=== PATIENT | male | born 1945 | race Caucasian/White ===

== ENCOUNTER 2019-03-25 06:09 | Inpatient (IN) | payer OTHER ==
[2019-03-21 17:11] VITALS: BMI 24.8
[2019-03-25] MEDS ORDERED: HEPARIN NA (PORCINE) 5,000 UNITS/ML 1ML VIAL SQ ONE (07:12)
[2019-03-25] MEDS ORDERED: BUPIVACAINE HCL/PF 0.5% (5MG/ML) 10 ML VIAL ONE (07:25)
[2019-03-25] MEDS ORDERED: fentaNYL CITRATE 250 MCG/5 ML VIAL ONE ×2 (07:52→10:58)
[2019-03-25] MEDS ORDERED: ROCURONIUM BROMIDE 50 MG/5 ML SYRINGE ONE ×2 (07:52→10:12)
[2019-03-25] MEDS ORDERED: MIDAZOLAM HCL 2 MG/2 ML SINGLE DOSE VIAL ONE (07:52)
[2019-03-25] MEDS ORDERED: SUCCINYLCHOLINE CHLORIDE 200 MG/10 ML SYRINGE ONE (07:52)
[2019-03-25] MEDS ORDERED: PROPOFOL 20 ML ONE ×2 (07:52)
[2019-03-25] MEDS ORDERED: DEXAMETHASONE SOD PHOSPHATE 4 MG/1 ML VIAL ONE (07:52)
--- NOTE | 2019-03-25 07:52 | HP ---
History & Physical Update - History History: No Change - Physical Physical: No Change - Assessment Assessment: No Change - Plan Plan: No Change (Full H&P in chart from 03/20/19 by Sveta Min MD)
[2019-03-25] MEDS ORDERED: ceFAZolin SODIUM 1 GM VIAL IVPB ONE (08:15)
[2019-03-25] MEDS ORDERED: BUPIVACAINE HCL/PF 0.5% (5 MG/ML) 30 ML VIAL IJ ONE ×2 (08:58→12:05)
[2019-03-25] MEDS ORDERED: NEOSTIGMINE METHYLSULFATE 0.5 MG/ML - 10 ML MDV ONE (12:13)
[2019-03-25] MEDS ORDERED: ONDANSETRON 4 MG/2 ML VIAL IVPUSH PRN (12:28)
[2019-03-25] MEDS ORDERED: OXYBUTYNIN CHLORIDE 5 MG TABLET PO PRN (12:38)
[2019-03-25] MEDS ORDERED: ACETAMINOPHEN 1000 MG/100 ML VIAL (NON FORMULARY) IVPB PRN (12:38)
[2019-03-25] MEDS ORDERED: ONDANSETRON 4 MG/2 ML VIAL IVPB PRN (12:38)
[2019-03-25] MEDS ORDERED: ACETAMINOPHEN 500 MG TABLET (FP) PO PRN (12:38)
[2019-03-25] MEDS ORDERED: oxyCODONE HCL 5 MG TABLET PO PRN (12:38)
[2019-03-25] MEDS ORDERED: diphenhydrAMINE HCL 50 MG CAPSULE PO PRN (12:38)
[2019-03-25] MEDS ORDERED: KETOROLAC TROMETHAMINE 15 MG/ML VIAL IVPB ONE (12:45)
[2019-03-25] MEDS ORDERED: KETOROLAC TROMETHAMINE 15 MG/ML VIAL ONE (12:47)
--- NOTE | 2019-03-25 13:01 | OP ---
Operative Note - Note: Operative Date: 03/25/19 Pre-Operative Diagnosis: Prostate cancer Operation: Robotic assisted prostectomy and pelvic lymph node Post-Operative Diagnosis: Same as Pre-op Surgeon: Jeferson Barbosa Break Out Worker: Benigno Cole Anesthesiologist/PASTE WORKER: Eufemia Sanchez Anesthesia: General Estimated Blood Loss (mls): 100 Operative Report Dictated: Yes
--- NOTE | 2019-03-25 13:05 | SURG ---
Surgery Plumber Helper Note Plumber Helper: Benigno Cole PA-C Date of Service: 03/25/19 Diagnosis: Prostate cancer Procedure: Robotic assisted prostatectomy and pelvic lymph node biopsy I was present for the entirety of the operative procedure. For further detail, please refer to operative report. Visit type - Case Type Case Type: Scheduled - Emergency Emergency Visit: No - New patient This patient is new to me today: Yes Date on this admission: 03/25/19 - Critical Care Critical Care patient: No
[2019-03-25] MEDS: SODIUM CHLORIDE 1,000 ML IV SCH (14:30)
[2019-03-25] MEDS: LACTATED RINGERS SOLUTION 1,000 ML IV SCH (15:21)
[2019-03-25] MEDS: KETOROLAC TROMETHAMINE 10 MG TABLET PO SCH ×2 (17:33→23:01)
[2019-03-25] MEDS: DOCUSATE SODIUM 100 MG CAPSULE (FP) PO SCH (21:35)
--- NOTE | 2019-03-25 21:43 | OPR ---
Date of Surgery: 03/25/19 Pre-Procedure Information Pre-op Diagnosis:Prostate cancer [C61] Procedure Information Procedure(s): PROSTATECTOMY LAPAROSCOPIC RADICAL ROBOTIC SI Bilateral pelvic lymph node dissection Anesthesia:General Surgeon(s) and Role: * Jeferson Barbosa MD - Primary Flue Blower: Benigno Procedure Description Indications:Intermediate risk prostate cancer. Findings:bilateral partial nerve sparing. Vesicourethral anastamosis with 3-0 Vloc. Procedure Details: The patient was prepped and draped in the usual fashion and placed in modified lithotomy position. All pressure points were padded and the patient was secured to the table. 16Fr cid catheter was inserted. A supraumbilical incision was made. Veress needle was introduced. The abdomen was insufflated to 15 mmHg. A 12 mm non-bladed trocar was introduced. The abdomen was inspected. There was no evidence of injury on entry. Two robotic trocars were placed in the right lower quadrant, one in the left lower quadrant, and an child care assistant 12 mm nonbladed AirSeal trocar was introduced two fingerbreadths above the anterior superior iliac spine on the left. The patient was placed in steep Trendelenburg. The AirSeal system was initiated and maintained at 13 mmHg, and the robot was brought in and docked into place.The medial umbilical ligaments were divided. The space of Retzius was developed. Superficial dorsal vein was divided with electrocatuery. Puboprostatic ligaments were divided. Endopelvic fascia was incised. The dorsal vein complex was controlled using 0 Vicryl figure-of-8 suture. The prostatovesical junction was divided using electrocautery. Vas deferens were identified, fulgurated, and divided. Seminal vesicles were dissected free of attachments. The posterior Denonvilliers fascia was divided. The rectum was peeled off the posterior aspect of the prostate as far down as possible. Bilateral prostatic pedicles were taken using Hem-o-lock clips and divided. Neurovascular bundleswere partially spared.The apex was dissected under direct vision. The anterior and posterior urethra were then divided. Finally, fibers of the posterior fibrous raphe were divided and the prostate was detached.Bilateral pelvic lymph node dissections were carried out removing the obturator and external iliac lymph node packet. At the end of the dissection, the external iliac vessels and the obturator nerve were intact with no evidence of injury. Left side was sent separately in endocatch bag. A 3-0 V-loc suture was used in the vesicourethral anastomosis from 6 o'clock to 12 o'clock clockwise and counterclockwise and tied in the middle. Irrigation with a new 18Fr foleyrevealedno leak. Balloon was inflated with 10cc.A MARGARET drain was placed and brought out the most lateral right-sided trocar incision and tied to the skin using 3-0 Nylon. The robot was undocked and removed. The patient was taken out of Trendelenburg. The prostate was then removed from an extension of the umbilical trocar. Fascia was closed using figure of 8 0-vicryl suture. The skin was closed using 4-[address] Barbosa was present and scrubbed for duration of case. Estimated Blood Loss: 100 ml
[2019-03-25] MEDS ORDERED: diphenhydrAMINE HCL 25 MG CAPSULE (FP) PO PRN (22:58)
[2019-03-26] MEDS: KETOROLAC TROMETHAMINE 10 MG TABLET PO SCH ×2 (06:20→12:48)
[2019-03-26 08:10] LABS: HEMATOCRIT 33.2 % (35.4-49); HEMOGLOBIN 11.2 GM/dL (11.7-16.9); MCH 29.5 pg (25.7-33.7); MCHC 33.8 g/dl (32.0-35.9); MEAN CELL VOLUME 87.3 fl (80-96); MEAN PLT VOLUME 8.8 fl (7.5-11.1); PLATELET COUNT 222 K/MM3 (134-434); RBC 3.81 M/mm3 (4.00-5.60)
[2019-03-26 08:41] LABS: BLOOD UREA NITROGEN 24.1 mg/dL (7-18); CREATININE 0.9 mg/dL (0.55-1.3); POTASSIUM 4.4 mmol/L (3.5-5.1)
[2019-03-26] MEDS: DOCUSATE SODIUM 100 MG CAPSULE (FP) PO SCH (10:57)
[2019-03-26 11:40] VITALS: BP 116/73; PULSE 89; TEMP 98.8
--- NOTE | 2019-03-26 12:21 | DS ---
Physical Exam: SUBJECTIVE: Patient seen and examined OBJECTIVE: Vital Signs Temperature 98.8 F 03/26/19 11:00 Pulse Rate 89 03/26/19 11:00 Respiratory Rate 18 03/26/19 11:00 Blood Pressure 116/73 03/26/19 11:00 O2 Sat by Pulse Oximetry (%) 96 03/25/19 21:00 PHYSICAL EXAM GENERAL: The patient is awake, alert, and fully oriented, in no acute distress. HEAD: Normal with no signs of trauma. EYES: PERRL, extraocular movements intact, sclera anicteric, conjunctiva clear. LUNGS: breathing comfortably, no accessory muscle use. HEART: Regular rate and rhythm ABDOMEN: Soft, mild lower abd tenderness, nondistended, no guarding, no rebound , no hepatosplenomegaly, no masses. Drain in place with serosanguinous drainage removed at bedside. EXTREMITIES: warm, well-perfused, no edema. NEUROLOGICAL: Cranial nerves II through XII grossly intact. Normal speech, gait not observed. PSYCH: Normal mood, normal affect. SKIN: Warm, dry, normal turgor, no rashes or lesions noted. LABS CBC,CMP WBC 7.0 K/mm3 (4.0-10.0) 03/26/19 06:50 RBC 3.81 M/mm3 (4.00-5.60) L 03/26/19 06:50 Hgb 11.2 GM/dL (11.7-16.9) L 03/26/19 06:50 Hct 33.2 % (35.4-49) L 03/26/19 06:50 MCV 87.3 fl (80-96) 03/26/19 06:50 MCH 29.5 pg (25.7-33.7) 03/26/19 06:50 MCHC 33.8 g/dl (32.0-35.9) 03/26/19 06:50 RDW 14.0 % (11.9-15.9) 03/26/19 06:50 Plt Count 222 K/MM3 (134-434) 03/26/19 06:50 MPV 8.8 fl (7.5-11.1) 03/26/19 06:50 Sodium 139 mmol/L (136-145) 03/26/19 06:50 Potassium 4.4 mmol/L (3.5-5.1) 03/26/19 06:50 Chloride 103 mmol/L (98-107) 03/26/19 06:50 Carbon Dioxide 29 mmol/L (21-32) 03/26/19 06:50 Anion Gap 7 MMOL/L (8-16) L 03/26/19 06:50 BUN 24.1 mg/dL (7-18) H 03/26/19 06:50 Creatinine 0.9 mg/dL (0.55-1.3) 03/26/19 06:50 Est GFR (CKD-EPI)AfAm 97.17 03/26/19 06:50 Est GFR (CKD-EPI)NonAf 83.84 03/26/19 06:50 Random Glucose 107 mg/dL (74-106) H 03/26/19 06:50 Calcium 8.0 mg/dL (8.5-10.1) L 03/26/19 06:50 HOSPITAL COURSE: 73yo M presented to the hospital for scheduled robotic assisted prostatectomy and pelvic lymph node biopsy for history of prostate cancer. Pt procedure went well with no intraoperative complications noted. Pt was recovered in the PACU and transferred to the floor. While in the hospital pt was doing well. Pt tolerating PO, ambulating, with pain well controlled. Pt has good urine output from his cid catheter and abdominal drain was removed at the bedside. Pt will be discharged home with cid in place to leg bag to stay in place until follow up with Dr. Holley in the office. Date of Admission:03/25/19 Date of Discharge: 03/26/19 Minutes to complete discharge: 25 Visit type - Case Type Case Type: Scheduled - Emergency Emergency Visit: No - New patient This patient is new to me today: Yes Date on this admission: 03/26/19 - Critical Care Critical Care patient: No
[2019-03-26] MEDS: LACTATED RINGERS SOLUTION 1,000 ML IV SCH (13:01)
[2019-03-26] MEDS: SODIUM CHLORIDE 1,000 ML IV SCH (13:01)
--- NOTE | 2019-03-31 12:58 | PATH ---
Surgical Pathology Report Patient Name: DAISHA WALKER [facility] Rec. #: [id number] /Age/Gender: 1945 (Age: 73) / F Account: [id number] Location: [facility] Taken: 03/25/2019 Received: 03/26/2019 Reported: 03/31/2019 Physicians: Jeferson Barbosa M.D. Specimen(s) Received A: PRE-PROSTATIC FAT B: RIGHT PELVIC LYMPH NODE C: LEFT PELVIC LYMPH NODE D: PROSTATE Clinical History Prostate carcinoma Final Diagnosis A. PRE-PROSTATIC FAT, EXCISION: BENIGN FIBROADIPOSE TISSUE. NEGATIVE FOR CARCINOMA. B. PELVIC LYMPH NODE, RIGHT, EXCISION: ONE LYMPH NODE NEGATIVE FOR CARCINOMA (0/1). C. PELVIC LYMPH NODE, LEFT, EXCISION: TWO LYMPH NODES NEGATIVE FOR CARCINOMA (0/2). D. PROSTATE, ROBOTIC ASSISTED LAPARASCOPIC RADICAL PROSTATECTOMY: PROSTATE ACINAR ADENOCARCINOMA, CASANDRA SCORE (3+4 = 7), GRADE 2. TUMOR VOLUME: APPROXIMATELY ~20% OF GLAND VOLUME. TUMOR FOCALITY: MULTIFOCAL, PRESENT BILATERALLY. HIGH GRADE PROSTATIC INTRAEPITHELIAL NEOPLASIA (HGPIN) PRESENT. NO INTRADUCTAL CARCINOMA PRESENT. RIGHT AND LEFT SEMINAL VESICLES ARE UNINVOLVED. NO LYMPHOVASCULAR INVASION IDENTIFIED. PERINEURAL INVASION IDENTIFIED. NO EXTRAPROSTATIC EXTENSION IDENTIFIED. SURGICAL MARGIN IS POSITIVE, NON-LIMITED, MEASURES 4 MM, AT RIGHT APEX; REMAINDER OF MARGINS ARE NEGATIVE. REMAINDER OF PROSTATIC PARENCHYMA SHOWS GLANDULAR AND STROMAL HYPERPLASIA, FOCAL ACUTE AND CHRONIC INFLAMMATION. AJCC PATHOLOGIC STAGE STAGE (pTNM, 8th Edition): pT2 pN0. SEE SUMMARY BELOW. Comments Prostate Carcinoma: Surgical Pathology Cancer Case Summary (Based on AJCC (TNM) 8th Edition) PROSTATE GLAND: Radical Prostatectomy Procedure _X_ Radical prostatectomy Prostate Size Weight: (grams): 53 g Size (centimeters): 5.4 x 4 x 3.6 cm Histologic Type _X_ Acinar adenocarcinoma Histologic Grade Grade Group and Parkville Score _X_ Grade group 2 ([place] Score 3+4=7) Percentage of Pattern 4 in Park[place] Score 7 (3+4, 4+3) Cancer (report if applicable): ~30 % Intraductal Carcinoma (IDC) _X_ Not identified Tumor Quantitation Estimated percentage of prostate involved by tumor: ~20 % Tumor size (dominant nodule, if present): n/a Extraprostatic Extension _X_ Not identified Urinary Bladder Neck Invasion _X_ Not identified Seminal Vesicle Invasion _X_ Not identified Lymphovascular Invasion _X_ Not identified Perineural Invasion _X_ Present Margins _X_ Involved by invasive carcinoma _X_ Non-limited (greater than or equal to 3 mm) Linear length of positive margin(s) (millimeters): 4 mm Focality _X_ Multifocal Location of Positive Margin(s) _X_ Right apical Casandra Pattern at Positive Margin(s) _X_ Pattern 3 Treatment Effect _X_ No known presurgical therapy Regional Lymph Nodes Lymph Node Examination Number of Lymph Nodes Involved: 0 Number of Lymph Nodes Examined: 3 Specify Site(s): Right and Left pelvic lymph nodes Pathologic Stage Classification (pTNM, AJCC 8th Edition) TNM Descriptors Primary Tumor (pT) _X_ pT2: Organ confined Regional Lymph Nodes Category (pN) _X_ pN0: No positive regional nodes Additional Pathologic Findings _X_ High-grade prostatic intraepithelial neoplasia (PIN) _X_ Inflammation (specify type): Acute and Chronic _X_ Nodular prostatic hyperplasia Electronically Signed Marylou Rivera M.D. Gross Description A. Received in formalin labeled "pre-prostatic fat," is a 5.6 x 4.0 x 0.3 cm aggregate of yellow, lobulated adipose tissue. No lesions or lymph nodes are identified. The specimen is entirely submitted in 4 cassettes. B. Received in formalin labeled "right pelvic lymph node," is a 3.5 x 1.0 x 0.6 cm valdez lymph node with attached fat. The specimen is bisected. Also received within the same container is a 0.5 cm greatest dimension possible lymph node. The specimen is entirely submitted in 3 cassettes as follows: 1-2-larger, bisected lymph node; 3-smaller possible lymph node. C. Received in formalin labeled "left pelvic lymph node," are 2 valdez lymph nodes with attached fat measuring 2.0 x 1.5 x 0.6 cm and 3.5 x 1.3 x 0.6 cm. The lymph nodes are sectioned and entirely submitted in 6 cassettes as follows: 1-2-one bisected lymph node; 3-6-one whole sectioned lymph node. D. Received in formalin labeled "prostate," is a 53 g radical prostatectomy specimen. The specimen measures 5.4 cm from left to right, 4.0 cm from apex to base and 3.6 cm from anterior to posterior. The right deferens measures 1.5 cm in length and the left vas deferens measures 2.0 cm in length. The right seminal vesicle measures 2.7 x 1.6 x 0.4 cm and the left seminal vesicle measures 2.6 x 1.5 x 0.6 cm. The outer surface of the prostate is valdez milan and smooth. The right side of the prostate is inked blue and the left side of the prostate is inked black. The specimen is serially sectioned from apex to base. Sectioning reveals yellow-valdez, firm, ill-defined nodularities involving all quadrants. No definite invasion through the outer capsule is identified.. Director Of Provider Relations sections are submitted in 31 cassettes as follows: 1-coned right apex; 2-coned left apex; 5-3-tqmoeeuokmi sections of right anterior sequentially submitted from apex to base; 7-coned right base; 3-73-[id number] sections of left anterior sequentially submitted from apex to base; 12-coned left base; 04-71-waqxrwfk submitted right posterior from apex to base; 31-55-hexhnezw submitted left posterior from apex to base; 96-81-mpgpxcrm of right seminal vesicle with prostatic parenchyma; 57-23-rkcysnei of left seminal vesicle with prostatic parenchyma; 31-right and left vas deferens margins. 03/26/2019 saudi03/26/2019
== END 2019-03-26 14:36 | disposition home or self-care (01) | DRG 484 ==
LOC: JSAMEDAYSX 06:09 → EDSEX 06:09 → J8W 14:43
PROVIDERS: ADMIT Student in an Organized Health Care Education/Training Program; ATTEND Student in an Organized Health Care Education/Training Program
PROC: 8E0W4CZ Robotic Assisted Procedure of Trunk Region, Percutaneous Endoscopic Approach (ICD-10-PCS; 2019-03-25)
PROC: 07BC4ZX Excision of Pelvis Lymphatic, Percutaneous Endoscopic Approach, Diagnostic (ICD-10-PCS; 2019-03-25)
PROC: 0VT04ZZ Resection of Prostate, Percutaneous Endoscopic Approach (ICD-10-PCS; principal; 2019-03-25 08:00)
DX: C61 Malignant neoplasm of prostate (principal)
CPT/HCPCS: 36415; 80048; 85027; 86850; 86900; 86901; 88305-TC; 88307-TC; 88309-TC; 94760; J7030